=== PATIENT | female | born 1970 | race Caucasian/White ===

== ENCOUNTER 2017-09-06 06:33 | Day surgery (SDC) | payer OTHER ==
[~2017-09-06] VITALS: Ht 154.9 cm; Wt 51.0 kg
[2017-09-06] VITALS (14 sets, daily range): BP systolic 130–157; BP diastolic 61–81; PULSE 50–60; RESP 12–32; Ht 154.9 cm; Wt 51.0 kg
[2017-09-06] MEDS ORDERED: CEFAZOLIN 2 GM/50 ML (PMX) 50 ML IVPB ONE (07:00)
[2017-09-06] MEDS ORDERED: LOSA50TA6 PO (07:14)
[2017-09-06] MEDS ORDERED: LACTATED RINGER'S 1,000 ML IV* SCH (07:30)
[2017-09-06] MEDS ORDERED: ROCURONIUM 50 MG INJ ONE (08:40)
[2017-09-06] MEDS ORDERED: FENTAnyl 50 MCG/ML VIAL ONE (08:40)
[2017-09-06] MEDS ORDERED: PROPOFOL 20 ML ONE (08:40)
[2017-09-06] MEDS ORDERED: SUCCINYLCHOLINE CHLORIDE 100 MG/5 ML SYG IV ONE (08:40)
[2017-09-06] MEDS ORDERED: METOCLOPRAMIDE 10 MG INJ ONE (08:41)
[2017-09-06] MEDS ORDERED: ONDANSETRON 4 MG INJ ONE (08:41)
[2017-09-06] MEDS ORDERED: hydrALAzine 20 MG INJ IV PRN (09:30)
[2017-09-06] MEDS ORDERED: FENTAnyl 50 MCG/ML VIAL IV PRN ×2 (09:30)
[2017-09-06] MEDS ORDERED: MEPERIDINE 25 MG INJ IV PRN (09:30)
[2017-09-06] MEDS ORDERED: LABETALOL HCL 20MG INJ IV PRN (09:30)
[2017-09-06] MEDS ORDERED: ONDANSETRON 4 MG INJ IV PRN (09:30)
[2017-09-06] MEDS ORDERED: HYDROmorphONE (0.2 MG/ML) 10ML SYG IV PRN ×3 (09:30)
--- NOTE | 2017-09-06 10:17 | OPR ---
Date/Time of Note Date/Time of Note DATE: 09/06/17 TIME: 10:11 Operative Report Procedure Date: Sep 06, 2017 Preoperative Diagnosis Menometorrhagia Postoperative Diagnosis same Operation/Procedure Performed Directed resection of endometrium Hydrothermal endometrial ablation Surgeon see signature line Management Accountant none Anesthesia Type: general Estimated Blood Loss: none Transfusion none Specimen endometrial resection Grafts/Implants none Tubes/Drains none Complications none Pt Condition Post Procedure: stable Disposition: PACU Procedure Description Findings: small fundal septum, otherwise normal cavity with thick endometrium The risks, benefits, indications, alternatives of procedure including, but not limited to risk of infection, bleeding, damage to other organs, bowel, bladder, hernia formation, scar formation, possibility of blood transfusions were discussed with the patient. She was allowed to ask questions. All her questions were answered. Informed consent was obtained. DESCRIPTION OF PROCEDURE: She was taken to the operating room. Spinal anesthesia was induced. She was prepped and draped in the usual dorsal lithotomy sterile fashion. Surgical time out one. Bimanual examination revealed uterus to be 8 weeks in size. Anterior segment of the cervix was grasped with single tooth tenaculum. The cervix was dilated to size 7 Connie Dilators. Hysteroscopy was performed. Findings as above seen. Resectoscope was used to resect the endometrium always under direct visualization of the hysteroscope. Sharp curettage was then performed. Hydrothermal ablation was done in normal fashion. there was no fluid loss during the procedure. the [employer] camera was inserted and tenaculum applied to seal the cervix. the seal check passed. after the cooling period the camera removed. Tenaculum was removed. there was no bleeding at the end of the procedure. patient tolerated the procedure well. ANDRZEJ KLINE MD Sep 06, 2017 10:17
--- NOTE | 2017-09-06 10:17 | OPR ---
Date/Time of Note Date/Time of Note DATE: 09/06/17 TIME: 10:11 Operative Report Procedure Date: Sep 06, 2017 Preoperative Diagnosis Menometorrhagia Postoperative Diagnosis same Operation/Procedure Performed Directed resection of endometrium Hydrothermal endometrial ablation Surgeon see signature line Wrister none Anesthesia Type: general Estimated Blood Loss: none Transfusion none Specimen endometrial resection Grafts/Implants none Tubes/Drains none Complications none Pt Condition Post Procedure: stable Disposition: PACU Procedure Description Findings: small fundal septum, otherwise normal cavity with thick endometrium The risks, benefits, indications, alternatives of procedure including, but not limited to risk of infection, bleeding, damage to other organs, bowel, bladder, hernia formation, scar formation, possibility of blood transfusions were discussed with the patient. She was allowed to ask questions. All her questions were answered. Informed consent was obtained. DESCRIPTION OF PROCEDURE: She was taken to the operating room. Spinal anesthesia was induced. She was prepped and draped in the usual dorsal lithotomy sterile fashion. Surgical time out one. Bimanual examination revealed uterus to be 8 weeks in size. Anterior segment of the cervix was grasped with single tooth tenaculum. The cervix was dilated to size 7 Connie Dilators. Hysteroscopy was performed. Findings as above seen. Resectoscope was used to resect the endometrium always under direct visualization of the hysteroscope. Sharp curettage was then performed. Hydrothermal ablation was done in normal fashion. there was no fluid loss during the procedure. the [employer] camera was inserted and tenaculum applied to seal the cervix. the seal check passed. after the cooling period the camera removed. Tenaculum was removed. there was no bleeding at the end of the procedure. patient tolerated the procedure well. ANDRZEJ KLINE MD Sep 06, 2017 10:17
--- NOTE | 2017-09-06 10:17 | OPR ---
Date/Time of Note Date/Time of Note DATE: 09/06/17 TIME: 10:11 Operative Report Procedure Date: Sep 06, 2017 Preoperative Diagnosis Menometorrhagia Postoperative Diagnosis same Operation/Procedure Performed Directed resection of endometrium Hydrothermal endometrial ablation Surgeon see signature line Senior Manager Asset Protection none Anesthesia Type: general Estimated Blood Loss: none Transfusion none Specimen endometrial resection Grafts/Implants none Tubes/Drains none Complications none Pt Condition Post Procedure: stable Disposition: PACU Procedure Description Findings: small fundal septum, otherwise normal cavity with thick endometrium The risks, benefits, indications, alternatives of procedure including, but not limited to risk of infection, bleeding, damage to other organs, bowel, bladder, hernia formation, scar formation, possibility of blood transfusions were discussed with the patient. She was allowed to ask questions. All her questions were answered. Informed consent was obtained. DESCRIPTION OF PROCEDURE: She was taken to the operating room. Spinal anesthesia was induced. She was prepped and draped in the usual dorsal lithotomy sterile fashion. Surgical time out one. Bimanual examination revealed uterus to be 8 weeks in size. Anterior segment of the cervix was grasped with single tooth tenaculum. The cervix was dilated to size 7 Connie Dilators. Hysteroscopy was performed. Findings as above seen. Resectoscope was used to resect the endometrium always under direct visualization of the hysteroscope. Sharp curettage was then performed. Hydrothermal ablation was done in normal fashion. there was no fluid loss during the procedure. the [employer] camera was inserted and tenaculum applied to seal the cervix. the seal check passed. after the cooling period the camera removed. Tenaculum was removed. there was no bleeding at the end of the procedure. patient tolerated the procedure well. ANDRZEJ KLINE MD Sep 06, 2017 10:17
== END 2017-09-06 11:08 | disposition home or self-care (01) ==
LOC: SDS 06:33
PROVIDERS: ATTEND Specialist
DX: N92.0 Excessive and frequent menstruation with regular cycle (principal)
CPT/HCPCS: 58353; 84703; 88305; J2175; J2405; J2765; J3010; Z7512; Z7610